=== PATIENT | male | born 1985 | race African-American/Black ===

== ENCOUNTER 2017-02-26 14:14 | Emergency (ER) | payer SELFPAY ==
[2017-02-26 14:19] VITALS: RESP 18; TEMP 98.2
[2017-02-26] MEDS ORDERED: IBUPROFEN 600 MG TAB PO ONE (15:32)
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
[2017-02-26] MEDS ORDERED: OXYCODONE/APAP 5/325MG PREPACK#4 BTL TAKEHOME ONE (15:59)
[2017-02-26 16:23] VITALS: BP 139/98; PULSE 97; O2SAT 80
== END 2017-02-26 16:22 | disposition home or self-care (01) ==
DX: S52.125A Nondisplaced fracture of head of left radius, initial encounter for closed fracture (principal); S53.402A Unspecified sprain of left elbow, initial encounter; V19.9XXA Pedal cyclist (driver) (passenger) injured in unspecified traffic accident, initial encounter; Y92.410 Unspecified street and highway as the place of occurrence of the external cause; Y99.8 Other external cause status